=== PATIENT | female | born 1960 | race Hispanic/Latino ===

== ENCOUNTER 2021-11-20 11:00 | Observation (INO) | payer MEDICARE ==
[~2021-11-20] VITALS: Ht 154.9 cm; Wt 112.9 kg
[2021-11-20] VITALS (14 sets, daily range): BP systolic 112–151; BP diastolic 61–76
[2021-11-20] MEDS ORDERED: ACETAMINOPHEN 325 MG TAB ONE (12:27)
[2021-11-20] MEDS ORDERED: ACETAMINOPHEN 325 MG TAB PO PRN (12:30)
[2021-11-20 13:30] LABS: BASOPHILS % (AUTO) 0.2 % (0.0-5.0); EOSINOPHILS % (AUTO) 1.7 % (0.0-8.0); HEMATOCRIT 35.3 % (36-48); LYMPHOCYTES % (AUTO) 31.9 % (21.0-51.0); MEAN CORPUSCULAR HEMOGLOBIN 24.9 pg (27.0-33.0); MEAN CORPUSCULAR HGB CONC 30.3 g/dL (32.0-36.0); MEAN CORPUSCULAR VOLUME 82.3 fL (79-99); MONOCYTES % (AUTO) 8.6 % (3.0-13.0); NEUTROPHILS % (AUTO) 57.2 % (40.0-77.0); PLATELET COUNT (AUTO) 188 K/uL (130-400); RED BLOOD CELL COUNT(AUTO) 4.29 MIL/uL (4.00-5.50); RED CELL DISTRIBUTION WIDTH 16.6 % (11.0-15.5); WHITE BLOOD COUNT (AUTO) 4.6 K/uL (4.8-10.8)
[2021-11-20] MEDS ORDERED: DEXTROSE 50%-WATER 50 ML DISP.SYRIN IV PRN (13:30)
[2021-11-20] MEDS ORDERED: ONDANSETRON 4MG INJ IVP PRN (13:30)
[2021-11-20] MEDS ORDERED: GLUCAGON 1MG KIT 1 MG ML IM PRN (13:30)
[2021-11-20] MEDS ORDERED: NITROGLYCERIN 0.4 MG SL TAB SL PRN (13:30)
[2021-11-20] MEDS ORDERED: PANTOPRAZOLE 40 MG/VIAL IVP ONE (13:30)
[2021-11-20 13:37] LABS: HEMOGLOBIN A1C 6.5 % (4.0-6.0)
[2021-11-20 13:48] LABS: INR 1.05 (0.85-1.15); PROTHROMBIN TIME 11.4 SEC (9.6-11.6)
[2021-11-20 13:49] LABS: PARTIAL THROMBOPLASTIN TIME 25.9 SEC (26.3-35.5)
[2021-11-20 13:56] LABS: BILIRUBIN,TOTAL 0.4 mg/dL (0.2-1.0); CREATININE 0.6 mg/dL (0.5-1.5); MAGNESIUM 2.1 mg/dL (1.80-2.40); POTASSIUM 4.3 mmol/L (3.5-5.1); THYROID STIMULATING HORMONE 0.35 uIU/mL (0.36-3.74); TOTAL PROTEIN, SERUM 6.9 g/dL (6.0-8.3)
[2021-11-20] MEDS ORDERED: ASPIRIN 81MG CHEW TAB PO ONE (14:00)
[2021-11-20 14:47] LABS: ERYTHROCYTE SEDIMENTATION RATE 37 MM/HR (0-30)
[2021-11-20] MEDS ORDERED: DULO30CA52 PO (14:54)
[2021-11-20] MEDS ORDERED: ASPI-1197 PO (14:54)
[2021-11-20] MEDS ORDERED: ATOR40TA69 PO (14:54)
[2021-11-20] MEDS ORDERED: NITR0.4T50 SL (14:54)
[2021-11-20] MEDS ORDERED: FERSL PO (14:54)
[2021-11-20] MEDS ORDERED: EZET10TA48 PO (14:54)
[2021-11-20] MEDS ORDERED: SUMA50TA17 PO (14:54)
[2021-11-20] MEDS ORDERED: QUET25TA36 PO (14:54)
[2021-11-20] MEDS ORDERED: METO25TA6 PO (14:54)
[2021-11-20] MEDS ORDERED: LORA10TA7 PO (14:54)
[2021-11-20] MEDS ORDERED: METF-444 PO (14:54)
[2021-11-20] MEDS ORDERED: LISI5TAB21 PO (14:54)
[2021-11-20] MEDS: INSULIN HUMULIN R 100 UNIT/ML 3ML SQ SCH ×2 (16:30→20:32)
[2021-11-20] MEDS ORDERED: METOPROLOL TARTRATE 25 MG TAB PO SCH (21:00)
[2021-11-20] MEDS ORDERED: RANOLAZINE 500 MG TAB.SR.12H PO SCH (21:00)
[2021-11-21] VITALS (10 sets, daily range): BP systolic 135–159; BP diastolic 61–83
[2021-11-21] MEDS: INSULIN HUMULIN R 100 UNIT/ML 3ML SQ SCH ×2 (05:52→11:30)
[2021-11-21 07:55] LABS: BASOPHILS % (AUTO) 0.2 % (0.0-5.0); EOSINOPHILS % (AUTO) 1.8 % (0.0-8.0); HEMATOCRIT 34.6 % (36-48); MEAN CORPUSCULAR HEMOGLOBIN 24.5 pg (27.0-33.0); MEAN CORPUSCULAR HGB CONC 30.6 g/dL (32.0-36.0); MEAN CORPUSCULAR VOLUME 80.1 fL (79-99); MONOCYTES % (AUTO) 8.4 % (3.0-13.0); NEUTROPHILS % (AUTO) 54.4 % (40.0-77.0); PLATELET COUNT (AUTO) 181 K/uL (130-400); RED BLOOD CELL COUNT(AUTO) 4.32 MIL/uL (4.00-5.50); RED CELL DISTRIBUTION WIDTH 16.4 % (11.0-15.5); WHITE BLOOD COUNT (AUTO) 4.5 K/uL (4.8-10.8)
[2021-11-21] MEDS ORDERED: DULOXETINE HCL 30 MG CAP PO SCH (08:00)
[2021-11-21 08:27] LABS: BILIRUBIN,TOTAL 0.3 mg/dL (0.2-1.0); CREATININE 0.6 mg/dL (0.5-1.5); POTASSIUM 4.2 mmol/L (3.5-5.1); TOTAL PROTEIN, SERUM 6.9 g/dL (6.0-8.3)
[2021-11-21] MEDS ORDERED: LORATADINE 10 MG TABLET PO SCH (09:00)
[2021-11-21] MEDS ORDERED: PANTOPRAZOLE 40 MG/VIAL IVP SCH (09:00)
[2021-11-21] MEDS ORDERED: FERROUS SULFATE 300 MG/5 ML LIQ UDCUP PO SCH (09:00)
[2021-11-21] MEDS ORDERED: EZETIMIBE 10 MG TAB PO SCH (09:00)
[2021-11-21] MEDS ORDERED: LISINOPRIL 5 MG TABLET PO SCH (09:00)
[2021-11-21] MEDS ORDERED: ASPIRIN 81MG CHEW TAB PO SCH (09:00)
[2021-11-21] MEDS ORDERED: BIVALIRUDIN 250 MG/VIAL IV ONE (10:08)
[2021-11-21] MEDS ORDERED: MIDAZOLAM HCL 1 MG/ML 2ML VIAL ONE (10:09)
[2021-11-21] MEDS ORDERED: NITROGLYCERIN 50MG VIAL ONE (10:09)
[2021-11-21] MEDS ORDERED: FENTANYL CITRATE PF 50 MCG/1 ML 2ML VIAL ONE (10:10)
[2021-11-21] MEDS ORDERED: LIDOCAINE HCL 400MG/20ML VIAL ONE (10:16)
[2021-11-21] MEDS ORDERED: HEPARIN 10,000 UNIT/10ML (1,000 UNIT/ML) VIAL ONE (10:17)
[2021-11-21] MEDS ORDERED: IOHEXOL 350 MG/ML 100ML INFUS..BTL IV ONE (10:23)
[2021-11-21] MEDS ORDERED: IOHEXOL-350 50ML VIAL IV ONE (10:23)
[2021-11-21] MEDS ORDERED: 0.9%NACL 1000ML 1,000 ML IV SCH (11:30)
[2021-11-21] MEDS ORDERED: METOPROLOL TARTRATE 1 MG/ML 5ML VIAL IV PRN (11:30)
[2021-11-21] MEDS ORDERED: RANO500T2 PO (14:04)
[2021-11-21] MEDS ORDERED: QUETIAPINE FUMARATE 25 MG TAB PO SCH (21:00)
== END 2021-11-21 16:20 | disposition home or self-care (01) ==
LOC: INTOOBSV 12:10 → 2CH 12:10 → 2DH 11-21 10:38
PROVIDERS: ADMIT Internal Medicine; ATTEND Internal Medicine
DX: I20.0 Unstable angina (principal); K75.89 Other specified inflammatory liver diseases; E66.9 Obesity, unspecified; I10 Essential (primary) hypertension; E78.5 Hyperlipidemia, unspecified; J44.9 Chronic obstructive pulmonary disease, unspecified; E11.9 Type 2 diabetes mellitus without complications; K75.9 Inflammatory liver disease, unspecified; G43.909 Migraine, unspecified, not intractable, without status migrainosus; G47.00 Insomnia, unspecified; R94.39 Abnormal result of other cardiovascular function study; F32.9 Major depressive disorder, single episode, unspecified; Z79.899 Other long term (current) drug therapy; Z98.84 Bariatric surgery status; Z98.890 Other specified postprocedural states; Z90.49 Acquired absence of other specified parts of digestive tract; Z98.51 Tubal ligation status; Z79.82 Long term (current) use of aspirin; Z79.84 Long term (current) use of oral hypoglycemic drugs; Z68.42 Body mass index [BMI] 45.0-49.9, adult
CPT/HCPCS: 36415 ×2; 76705; 80053 ×2; 80061; 82550 ×2; 82948 ×6; 83036; 83735; 83874; 84145; 84439; 84443; 84481; 84484 ×2; 85025 ×2; 85610; 85651; 85730; 86140; 93458; 96374; 96376; C1760; C1894 ×2; C9113; G0378 ×5; J1644; J2250; J3010; J3490 ×2; Q9965; Q9967 ×2; 99156; 99157; J0583

== ENCOUNTER → 2022-02-25 | Outpatient (CLI) | payer MEDICARE ==
[~2022-02-25] MED LIST: ASPI-1197 PO; ATOR40TA69 PO; DULO30CA52 PO; EZET10TA48 PO; FERSL PO; IOHEXOL-350 50ML VIAL IV ONE; LISI5TAB21 PO; LORA10TA7 PO; METF-444 PO; METO25TA6 PO; METOPROLOL TARTRATE 1 MG/ML 5ML VIAL IV ONE; NITR0.4T50 SL; QUET25TA36 PO; RANO500T2 PO; SUMA50TA17 PO
== END | disposition home or self-care (01) ==
LOC: RAH 07:49
PROVIDERS: ATTEND Internal Medicine Cardiovascular Disease
DX: R07.9 Chest pain, unspecified (principal)
CPT/HCPCS: 75574; Q9967; J3490